=== PATIENT | male | born 1945 | race Caucasian/White ===

== ENCOUNTER 2016-12-08 14:28 | Emergency (ER) | payer OTHER ==
[~2016-12-08] VITALS: Ht 177.8 cm; Wt 88.5 kg
[~2016-12-08 14:28] MED LIST: ASPI-862 PO; BUPR150T28 PO; BUSP5TAB3 PO; CILO100T PO; DILT240C2 PO; KLO.5 PO; LISI40TA4 PO; METF-303 PO; METO-308 PO; SIMV20TA6 PO
[2016-12-08 14:33] VITALS: BP 147/67; PULSE 59; RESP 20; TEMP 98.2; O2SAT 100
--- NOTE | 2016-12-08 14:39 | NUR ---
Pt placed to ER bed 02, to christen, report given to ARIANNA Covarrubias.
--- NOTE | 2016-12-08 14:40 | NUR ---
Patient arrived to ED a/o x 4 with c/o left knee pain. Patient reports he was cleaning his carpet yesterday when he twisted his knee and felt a popping sensation. No obvious deformity noted. Patient c/o 5/10 pain. No bruising or swelling. Will continue to monitor.
--- NOTE | 2016-12-08 14:45 | NUR ---
[employer] Mueller at bedside for medical evaluation.
--- NOTE | 2016-12-08 15:00 | NUR ---
Radiology at bedside.
[2016-12-08] MEDS ORDERED: ACETAMINOPHEN 500 MG TABLET PO ONE (15:15)
--- NOTE | 2016-12-08 15:25 | NUR ---
ED MD Mueller at bedside reassessing patient.
--- NOTE | 2016-12-08 15:40 | NUR ---
Note sonny in EDM - 12/08/16 at 1718 by [email or web address] Patient given written and verbal discharge instructions and verbalizes understanding. ER discussed with patient the results and treatment provided. Patient in stable condition. ID arm band removed. Rx of Tylenol given. Patient educated on pain management and to follow up with PMD. Pain Scale 2/10 tolerable for patient. Opportunity for questions provided and answered.
--- NOTE | 2016-12-08 15:59 | NUR ---
Patient reports pain 2/10 30 minutes after administration of 1000mg Tylenol PO. No adverse reactions noted. Will continue to monitor.
[2016-12-08 16:00] VITALS: BP 135/77; PULSE 64; RESP 16; TEMP 98.2; O2SAT 100
--- NOTE | 2016-12-08 16:00 | NUR ---
Patient given written and verbal discharge instructions and verbalizes understanding. ER MD discussed with patient the results and treatment provided. Patient in stable condition. ID arm band removed. Rx of Tylenol given. Patient educated on pain management and to follow up with PMD. Pain Scale 2/10 tolerable for patient. Opportunity for questions provided and answered.
--- NOTE | 2016-12-08 16:29 | NUR ---
Note sonny in ED - 12/08/16 at 1716 by [email or web address] Patient reports pain 2/10 30 minutes after administration of 1000mg Tylenol PO. No adverse reactions noted. Will continue to monitor.
== END 2016-12-08 16:00 | disposition home or self-care (01) ==
LOC: SED 14:28
DX: M25.562 Pain in left knee (principal); I10 Essential (primary) hypertension; Z86.73 Personal history of transient ischemic attack (TIA), and cerebral infarction without residual deficits; Z79.82 Long term (current) use of aspirin; X50.1XXA Overexertion from prolonged static or awkward postures, initial encounter; Y93.E9 Activity, other interior property and clothing maintenance; Y92.89 Other specified places as the place of occurrence of the external cause; Y99.8 Other external cause status
CPT/HCPCS: 73564; 99284

== ENCOUNTER 2018-06-05 11:39 | Emergency (ER) | payer OTHER ==
[~2018-06-05] VITALS: Ht 177.8 cm; Wt 82.6 kg
[~2018-06-05 11:39] MED LIST changes: -METF-303 PO; +METF-379 PO; -METO-308 PO; +METO-544 PO
[2018-06-05 11:40] VITALS: BP_SYST 135
[2018-06-05 12:50] LABS: CALCIUM 9.1 mg/dL (8.4-11.0); CHLORIDE 98 mmol/L (98-107); CREATININE 1.43 mg/dL (0.55-1.30); GLUCOSE 294 mg/dL (70-99); POTASSIUM 4.6 mmol/L (3.5-5.1); SODIUM SERUM 131 mmol/L (136-145); UREA NITROGEN, BLOOD 29 mg/dL (8-21)
[2018-06-05 12:53] LABS: INR 1.1 (0.80-1.20); PROTHROMBIN TIME 11.5 SECS (9.5-12.5)
[2018-06-05 12:54] LABS: HEMATOCRIT 36.6 % (36-54); HEMOGLOBIN 12.2 g/dL (14.0-18.0); LYMPHOCYTES % (AUTO) 23.3 % (20.5-51.5); MEAN CORPUSCULAR HEMOGLOBIN 30 pg (27-31); MEAN CORPUSCULAR HGB CONC 33 % (32-36); MEAN CORPUSCULAR VOLUME 89 fL (79.0-98.0); MONOCYTES % (AUTO) 9.1 % (1.7-9.3); NEUTROPHILS % (AUTO) 65.5 % (40.0-70.0); PLATELET COUNT (AUTO) 218 K/uL (130-430); RED BLOOD CELL COUNT(AUTO) 4.13 MIL/uL (4.2-6.2); RED CELL DISTRIBUTION WIDTH 14.5 % (9.0-15.0); WHITE BLOOD COUNT (AUTO) 6.2 K/uL (4.8-10.8)
[2018-06-05 12:55] LABS: ALANINE AMINOTRANSFERASE 30 U/L (12-78); ALBUMIN 3.5 g/dL (3.4-4.8); ANION GAP 4 (5-15); ASPARTATE AMINOTRANSFERASE 19 U/L (10-37); BASOPHILS % (AUTO) 0.5 % (0.0-2.0); EOSINOPHILS # (AUTO) 0.1 K/uL (0.0-0.4); EOSINOPHILS % (AUTO) 1.6 % (0.0-4.0); LYMPHOCYTES # (AUTO) 1.4 K/uL (1.0-5.5); MONOCYTES # (AUTO) 0.6 K/uL (0.0-1.0); TOTAL BILIRUBIN 0.5 mg/dL (0.0-1.0)
[2018-06-05 16:15] VITALS: BP_SYST 135
[2018-06-05 17:46] LABS: BILIRUBIN,URINE NEGATIVE (NEGATIVE); BLOOD, URINE NEGATIVE (NEGATIVE); CLARITY/URINE CLEAR (CLEAR); COLOR,URINE YELLOW (YELLOW); GLUCOSE,URINE 1+ (NEGATIVE); KETONES,URINE NEGATIVE (NEGATIVE); LEUKOCYTE ESTERASE ,URINE NEGATIVE (NEGATIVE); NITRITE, URINE NEGATIVE (NEGATIVE); PH,URINE 5.5 (5.0-8.0); PROTEIN URINE NEGATIVE (NEGATIVE); UROBILINOGEN,URINE 0.2 (0.2-1.0)
[2018-06-05 17:58] LABS: BARBITURATE, URINE NEGATIVE (NEG <=200); BENZODIAZEPINE, URINE NEGATIVE (NEG <=150); CANNABINOID, URINE NEGATIVE (NEG <=50); COCAINE, URINE NEGATIVE (NEG <=150); METHAMPHETAMINES SCREEN,URINE NEGATIVE (NEG <=500); OPIATE, URINE NEGATIVE (NEG <=100); PHENCYCLIDINE SCREEN,URINE NEGATIVE (NEG <=25); UR TRICYCLIC ANTIDEPRESSANTS NEGATIVE (NEG <=300); URINE AMPHETAMINE NEGATIVE (NEG <=500); URINE METHADONE NEGATIVE (NEG <=200); URINE OXYCODONE SCREEN NEGATIVE (NEG <=100); URINE PROPOXYPHENE SCREEN NEGATIVE (NEG <=300)
== END 2018-06-05 16:15 | disposition home or self-care (01) ==
LOC: SED 11:39
DX: E86.0 Dehydration (principal); R42 Dizziness and giddiness; E11.9 Type 2 diabetes mellitus without complications; I10 Essential (primary) hypertension; Z86.79 Personal history of other diseases of the circulatory system; Z86.73 Personal history of transient ischemic attack (TIA), and cerebral infarction without residual deficits; Z79.82 Long term (current) use of aspirin; Z79.899 Other long term (current) drug therapy
CPT/HCPCS: 36415; 70450-TC; 71045; 80053; 80307; 81003; 82962; 84484; 85025; 85610-TC; 85730-TC; 93005; 99284

== ENCOUNTER 2020-06-30 16:21 | Emergency (ER) | payer OTHER ==
[~2020-06-30] VITALS: Ht 177.8 cm; Wt 79.4 kg
[~2020-06-30 16:21] MED LIST changes: -DILT240C2 PO; +DILT240C95 PO; +LISI40TA13 PO; -LISI40TA4 PO; +SIMV-43 PO; -SIMV20TA6 PO
[2020-06-30 16:43] VITALS: BP_SYST 187
[2020-06-30] MEDS ORDERED: SULF1TAB48 PO (17:22)
[2020-06-30 17:30] VITALS: BP_SYST 165
== END 2020-06-30 17:31 | disposition home or self-care (01) ==
LOC: SED 16:21
DX: L03.115 Cellulitis of right lower limb (principal); L98.499 Non-pressure chronic ulcer of skin of other sites with unspecified severity; I10 Essential (primary) hypertension; E11.9 Type 2 diabetes mellitus without complications; Z79.899 Other long term (current) drug therapy; Z79.82 Long term (current) use of aspirin; Z86.73 Personal history of transient ischemic attack (TIA), and cerebral infarction without residual deficits; Z86.79 Personal history of other diseases of the circulatory system
CPT/HCPCS: 99283

== ENCOUNTER 2021-03-11 16:17 | Emergency (ER) | payer OTHER, SELFPAY ==
[~2021-03-11] VITALS: Ht 177.8 cm; Wt 77.1 kg
[~2021-03-11 16:17] MED LIST changes: +SULF1TAB48 PO
[2021-03-11 16:20] VITALS: BP_SYST 150
[2021-03-11 19:06] LABS: BASOPHILS % (AUTO) 0.3 % (0.0-2.0); HEMATOCRIT 39.2 % (36-54); HEMOGLOBIN 13.5 g/dL (14.0-18.0); LYMPHOCYTES # (AUTO) 0.8 K/uL (1.0-5.5); MEAN CORPUSCULAR HEMOGLOBIN 30 pg (27-31); MEAN CORPUSCULAR HGB CONC 35 % (32-36); MEAN CORPUSCULAR VOLUME 88 fL (79.0-98.0); MONOCYTES # (AUTO) 0.8 K/uL (0.0-1.0); MONOCYTES % (AUTO) 6.8 % (1.7-9.3); NEUTROPHILS % (AUTO) 85.9 % (40.0-70.0); PLATELET COUNT (AUTO) 209 K/uL (130-430); RED BLOOD CELL COUNT(AUTO) 4.45 MIL/uL (4.2-6.2); WHITE BLOOD COUNT (AUTO) 11.6 K/uL (4.8-10.8)
[2021-03-11 19:08] LABS: ANION GAP 8 (5-15); CALCIUM 8.8 mg/dL (8.4-11.0); CHLORIDE 99 mmol/L (98-107); CREATININE 1.12 mg/dL (0.55-1.30); GLUCOSE 258 mg/dL (70-99); SODIUM SERUM 137 mmol/L (136-145); UREA NITROGEN, BLOOD 19 mg/dL (8-21)
[2021-03-11 19:17] LABS: ALANINE AMINOTRANSFERASE 21 U/L (12-78); ALBUMIN 3.6 g/dL (3.4-4.8); ASPARTATE AMINOTRANSFERASE 10 U/L (10-37); LACTATE DEHYDROGENASE 204 U/L (85-227); TOTAL BILIRUBIN 0.7 mg/dL (0.0-1.0)
[2021-03-11 19:18] LABS: C-REACTIVE PROTEIN QUANT 9.4 mg/dL (0-0.5)
[2021-03-11 19:22] LABS: FIBRINOGEN 552 mg/dL (200-400)
[2021-03-11] MEDS ORDERED: IOHEXOL 350 mgI/mL, 150 ML INFUS..BTL IV ONE (21:54)
[2021-03-11] MEDS ORDERED: cefTRIAXone 1 GM in D5W 50 ML IV ONE (23:45)
[2021-03-11] MEDS ORDERED: AZITHROMYCIN 250 MG TABLET PO ONE (23:45)
[2021-03-11] MEDS ORDERED: ACETAMINOPHEN 500 MG TABLET ONE (23:50)
[2021-03-11] MEDS ORDERED: cefTRIAXone 1 GM VIAL ONE (23:54)
[2021-03-12] MEDS ORDERED: NACL 0.9% 1,000 ML IV ONE
[2021-03-12] MEDS ORDERED: ACETAMINOPHEN 500 MG TABLET PO ONE
[2021-03-12] MEDS ORDERED: ALBMDI INH (02:12)
[2021-03-12] MEDS ORDERED: GUAI5SYR PO (02:12)
[2021-03-12] MEDS ORDERED: FLO44 INH (02:12)
[2021-03-12] MEDS ORDERED: DOXY100C5 PO (02:12)
[2021-03-12] MEDS ORDERED: AMOX-426 PO (02:12)
[2021-03-12 07:17] VITALS: BP_SYST 162
== END 2021-03-12 07:17 | disposition home or self-care (01) ==
LOC: SED 16:17
DX: U07.1 COVID-19 (principal); J12.82 Pneumonia due to coronavirus disease 2019; I10 Essential (primary) hypertension; E11.9 Type 2 diabetes mellitus without complications; Z79.899 Other long term (current) drug therapy
CPT/HCPCS: 71045; 71275; 76376; 80053; 82550; 82962; 83605; 83615; 83880; 84484; 85025; 85379; 85384; 86140; 87040; 87426; 93005; 96365; 99285; J0696; Q0144; Q9967

== ENCOUNTER 2022-02-10 12:46 | Inpatient (IN) | payer OTHER ==
[~2022-02-10] VITALS: Ht 175.3 cm; Wt 76.3 kg
[~2022-02-10 12:46] MED LIST changes: +ALBMDI INH; +AMOX-426 PO; -CILO100T PO; +CILO100T3 PO; +DOXY100C5 PO; +FLO44 INH; +GUAI5SYR PO
[2022-02-10 12:59] VITALS: BP_SYST 184
--- NOTE | 2022-02-10 13:07 | NUR ---
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 AAOX4. Addendum: 02/10/22 at 1640 by [email or web address] Admit bed requested Patient will be admitted to care of . Admitted to TELE unit. Diagnosis C/P R/O CVA Inpatient (Yes or No) Y Observation (Yes or No) N Orientation concerns or request close to nursing station (Yes or No) Covid StatusPENDING On vent or bipap N Isolation requirements N Needs a sitter N From Home (Yes or if No enter name of facility) Y Requires Dialysis (Yes or No) N Med Rec Completed (Yes of No) N
--- NOTE | 2022-02-10 13:09 | NUR ---
Patient to ER bed 3 to gown for evaluation. Side rails up. Report given to LATOSHA KELLER.
--- NOTE | 2022-02-10 13:30 | NUR ---
EDP AT BEDSIDE FOR INITIAL ASSESSMENT.
[2022-02-10 14:07] LABS: BASOPHILS % (AUTO) 0.5 % (0.0-2.0); EOSINOPHILS # (AUTO) 0.1 K/uL (0.0-0.4); HEMATOCRIT 39.4 % (36-54); HEMOGLOBIN 13.4 g/dL (14.0-18.0); LYMPHOCYTES # (AUTO) 0.7 K/uL (1.0-5.5); LYMPHOCYTES % (AUTO) 13.2 % (20.5-51.5); MEAN CORPUSCULAR HEMOGLOBIN 31 pg (27-31); MEAN CORPUSCULAR HGB CONC 34 % (32-36); MEAN CORPUSCULAR VOLUME 91 fL (79.0-98.0); MONOCYTES # (AUTO) 0.7 K/uL (0.0-1.0); MONOCYTES % (AUTO) 12.7 % (1.7-9.3); NEUTROPHILS # (AUTO) 3.9 K/uL (1.8-7.7); NEUTROPHILS % (AUTO) 71.6 % (40.0-70.0); PLATELET COUNT (AUTO) 242 K/uL (130-430); RED BLOOD CELL COUNT(AUTO) 4.35 MIL/uL (4.2-6.2); RED CELL DISTRIBUTION WIDTH 13.7 % (9.0-15.0); WHITE BLOOD COUNT (AUTO) 5.4 K/uL (4.8-10.8)
[2022-02-10 14:22] LABS: ANION GAP 7 (5-15); CALCIUM 9.1 mg/dL (8.4-11.0); CHLORIDE 100 mmol/L (98-107); CREATININE 1.13 mg/dL (0.55-1.30); GLUCOSE 360 mg/dL (70-99); UREA NITROGEN, BLOOD 23 mg/dL (8-21)
[2022-02-10 14:29] LABS: ALANINE AMINOTRANSFERASE 24 U/L (12-78); ALBUMIN 3.4 g/dL (3.4-4.8); ASPARTATE AMINOTRANSFERASE 20 U/L (10-37); TOTAL BILIRUBIN 0.4 mg/dL (0.0-1.0)
--- NOTE | 2022-02-10 16:42 | NUR ---
PATIENT ADMIT TO DR LOPEZ, AWAITING FOR BED ASSIGNMENT.
--- NOTE | 2022-02-10 18:13 | NUR ---
CALL PLACE TO DR WARNER.
--- NOTE | 2022-02-10 18:42 | NUR ---
COVID SWAB SENT TO LAB.
--- NOTE | 2022-02-10 20:00 | NUR ---
A/O X 3, VSS NO S/S OF ACUTE DISTRESS
--- NOTE | 2022-02-11 03:30 | NUR ---
PROVIDED COMPLETE BEDSIDE CARE AND LINEN CHANGE
[2022-02-11] MEDS ORDERED: ALBUTEROL SULFATE 0.083% 2.5 MG/3 ML VIAL.NEB INH PRN (07:15)
[2022-02-11 07:47] LABS: BASOPHILS % (AUTO) 0.8 % (0.0-2.0); EOSINOPHILS # (AUTO) 0.2 K/uL (0.0-0.4); EOSINOPHILS % (AUTO) 3.2 % (0.0-4.0); HEMATOCRIT 38.7 % (36-54); HEMOGLOBIN 13.4 g/dL (14.0-18.0); LYMPHOCYTES # (AUTO) 1.6 K/uL (1.0-5.5); LYMPHOCYTES % (AUTO) 26.6 % (20.5-51.5); MEAN CORPUSCULAR HEMOGLOBIN 31 pg (27-31); MEAN CORPUSCULAR HGB CONC 35 % (32-36); MEAN CORPUSCULAR VOLUME 90 fL (79.0-98.0); MONOCYTES # (AUTO) 0.7 K/uL (0.0-1.0); MONOCYTES % (AUTO) 11.5 % (1.7-9.3); NEUTROPHILS # (AUTO) 3.5 K/uL (1.8-7.7); NEUTROPHILS % (AUTO) 57.9 % (40.0-70.0); PLATELET COUNT (AUTO) 260 K/uL (130-430); RED BLOOD CELL COUNT(AUTO) 4.32 MIL/uL (4.2-6.2); RED CELL DISTRIBUTION WIDTH 13.8 % (9.0-15.0); WHITE BLOOD COUNT (AUTO) 6.1 K/uL (4.8-10.8)
[2022-02-11 07:59] LABS: ANION GAP 8 (5-15); CALCIUM 8.6 mg/dL (8.4-11.0); CHLORIDE 101 mmol/L (98-107); CREATININE 1.04 mg/dL (0.55-1.30); GLUCOSE 270 mg/dL (70-99); UREA NITROGEN, BLOOD 22 mg/dL (8-21)
[2022-02-11 08:00] LABS: PROTHROMBIN TIME 10.6 SECS (9.5-12.5)
--- NOTE | 2022-02-11 08:00 | NUR ---
RECEIVED REPORT FROM ARIANNA ARIAS FOR CONTINUITY OF CARE. PATIENT TO BE ADMITTED FOR CHEST PAIN R/O CVA. PATIENT WITH HX OF AFIB, NOT RECEIVING ANY ANTICOAGULATION. PATIENT HAS BEEN EXPERIENCING INTERMITTED CP. AT THE ED HE WAS NOTED TO HAVE OCCASSIONAL ELEVATED HR WITH EXERTION, REACHING UP TO 170S ACCOMPANIED WITH DIZZINESS. NO DIZZINESS NOTED AT THIS TIME. WILL CONTINUE WITH PLAN OF CARE
[2022-02-11 08:17] LABS: ALANINE AMINOTRANSFERASE 25 U/L (12-78); ALBUMIN 3.5 g/dL (3.4-4.8); ASPARTATE AMINOTRANSFERASE 21 U/L (10-37); CHOLESTEROL 227 mg/dL (<200); HDL CHOLESTEROL 52 mg/dL (>45); TOTAL BILIRUBIN 0.4 mg/dL (0.0-1.0); TRIGLYCERIDES 86 mg/dL (30-150)
--- NOTE | 2022-02-11 08:28 | NUR ---
DR. RIBERA AT BEDSIDE WITH PATIENT.
[2022-02-11] MEDS ORDERED: SIMVASTATIN 20 MG TABLET PO SCH (09:00)
[2022-02-11] MEDS: buPROPion HCL 150 MG TABLET.SA PO SCH (09:00)
[2022-02-11] MEDS: ASPIRIN 81 MG TAB.CHEW PO SCH (09:00)
[2022-02-11] MEDS ORDERED: metFORMIN HCL 500 MG TABLET PO SCH (09:00)
[2022-02-11] MEDS ORDERED: NON-FORMULARY MEDICATION (Metoprolol Succinate 100 MG) PO SCH (09:00)
[2022-02-11] MEDS: CARVEDILOL 25 MG TABLET (COREG) PO SCH ×2 (09:00→21:00)
[2022-02-11] MEDS ORDERED: FLUTICASONE 44 mcg/ACTUATION MDI AER.W.ADAP INH SCH (09:00)
[2022-02-11] MEDS: lisinopriL 20 MG TABLET PO SCH ×2 (09:00→20:59)
[2022-02-11] MEDS ORDERED: ASPIRIN 81 MG TAB.CHEW PO SCH (09:00)
--- NOTE | 2022-02-11 09:53 | NUR ---
CARDIAC ULTRASOUND COMPLETED AND PATIENT TRANSFERRED TO MRI. MRI QUESTIONNAIRE COMPLETED WITH PATIENT
--- NOTE | 2022-02-11 10:30 | NUR ---
PATIENT RETURNED FROM MRI. TOLERATED PROCEDURE WELL. NO S/S OF ACUTE DISTRESS. ATTACHED TO MONITOR. WILL CONTINUE WITH PLAN OF CARE
--- NOTE | 2022-02-11 12:26 | NUR ---
Patient resting quietly. No acute distress noted. Vital signs within normal range.
[2022-02-11 13:53] VITALS: BP_SYST 163
--- NOTE | 2022-02-11 14:00 | NUR ---
PATIENT SITTING UP IN BED, ABLE TO AMBULATE TO THE BATHROOM INDEPENDENTLY. PLAN OF CARE ONGOING
--- NOTE | 2022-02-11 16:11 | NUR ---
PATIENT RETURNED FROM RESTROOM, RELIGIOUS EDUCATOR AT BEDSIDE FOR CAROTID ULTRASOUND
--- NOTE | 2022-02-11 18:15 | NUR ---
Patient resting quietly. No acute distress noted. Vital signs within normal range.
[2022-02-11] MEDS: metFORMIN HCL 500 MG TABLET PO SCH (18:26)
--- NOTE | 2022-02-11 18:57 | NUR ---
Admit bed requested Patient will be admitted to care of . Admitted to TELE unit. Diagnosis CP R/O CVA Inpatient (Yes or No) YES Observation (Yes or No) NO Orientation concerns or request close to nursing station (Yes or No) NO Covid Status NEGATIVE On vent or bipap NO Isolation requirements NO Needs a sitter NO From Home (Yes or if No enter name of facility) HOME Requires Dialysis (Yes or No) NO Med Rec Completed (Yes of No) YES
--- NOTE | 2022-02-11 19:24 | NUR ---
REPORT FROM RICARDO KELLER
--- NOTE | 2022-02-11 20:00 | NUR ---
Patient will be admitted to care of JEROME KELLER. Admitted to TELE unit. Will go to room 100A. Belongings list completed. Complete and up to date summary report printed. SBAR report to be given at bedside with opportunity for questions.
[2022-02-11] MEDS: SIMVASTATIN 40 MG TABLET PO SCH (20:59)
[2022-02-11 21:09] VITALS: BP_SYST 158
--- NOTE | 2022-02-11 21:15 | NUR ---
ADMIT 76 year old male alert & oriented ambulates to Rest Room History of old CVA no deficits noted procedures explained & due medications po administered / .
--- NOTE | 2022-02-12 | NUR ---
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
[2022-02-12 02:00] VITALS: BP_SYST 154
--- NOTE | 2022-02-12 03:58 | NUR ---
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
[2022-02-12 07:26] LABS: BASOPHILS # (AUTO) 0.1 K/uL (0.0-0.2); BASOPHILS % (AUTO) 0.8 % (0.0-2.0); EOSINOPHILS # (AUTO) 0.2 K/uL (0.0-0.4); EOSINOPHILS % (AUTO) 2.3 % (0.0-4.0); HEMATOCRIT 35.9 % (36-54); HEMOGLOBIN 12.4 g/dL (14.0-18.0); LYMPHOCYTES # (AUTO) 1.6 K/uL (1.0-5.5); MEAN CORPUSCULAR HEMOGLOBIN 31 pg (27-31); MEAN CORPUSCULAR HGB CONC 35 % (32-36); MEAN CORPUSCULAR VOLUME 89 fL (79.0-98.0); NEUTROPHILS # (AUTO) 4.3 K/uL (1.8-7.7); NEUTROPHILS % (AUTO) 60.9 % (40.0-70.0); PLATELET COUNT (AUTO) 237 K/uL (130-430); RED BLOOD CELL COUNT(AUTO) 4.02 MIL/uL (4.2-6.2); RED CELL DISTRIBUTION WIDTH 13.8 % (9.0-15.0); WHITE BLOOD COUNT (AUTO) 7.1 K/uL (4.8-10.8)
[2022-02-12 07:34] LABS: ANION GAP 5 (5-15); CALCIUM 8.7 mg/dL (8.4-11.0); CHLORIDE 104 mmol/L (98-107); CREATININE 1.09 mg/dL (0.55-1.30); GLUCOSE 302 mg/dL (70-99); UREA NITROGEN, BLOOD 26 mg/dL (8-21)
[2022-02-12 07:49] LABS: ALANINE AMINOTRANSFERASE 24 U/L (12-78); ASPARTATE AMINOTRANSFERASE 16 U/L (10-37); THYROID STIMULATING HORMONE 1.51 uIu/mL (0.36-3.74); TOTAL BILIRUBIN 0.4 mg/dL (0.0-1.0)
[2022-02-12 08:39] VITALS: BP_SYST 196
[2022-02-12] MEDS: ASPIRIN 81 MG TAB.CHEW PO SCH (08:57)
[2022-02-12] MEDS: buPROPion HCL 150 MG TABLET.SA PO SCH (08:58)
[2022-02-12] MEDS: metFORMIN HCL 500 MG TABLET PO SCH ×2 (08:58→18:48)
[2022-02-12] MEDS: lisinopriL 20 MG TABLET PO SCH ×2 (08:59→20:55)
[2022-02-12] MEDS: CARVEDILOL 25 MG TABLET (COREG) PO SCH ×2 (08:59→20:55)
[2022-02-12] MEDS ORDERED: DILTIAZEM HCL 180 MG CAP.SR.24H PO ONE (10:00)
--- NOTE | 2022-02-12 11:15 | NUR ---
ROUNDS LATE ENTRY DUE TO PATIENT CARE 0800:- AAAOX4. BP 196/77.DR WARNER HERE ROUNDING AND WAS NOTIFIED 1000- BLOOD MEASURE MEDICATIONS GIVEN, ADDITIONAL DOSE OF CARDIZEM GIVEN. EDUCATED ON RISK FACTORS OF STROKE AND SIGNS AND SYMPTOMS, PT VERBALIZED UNDERSTANDING
[2022-02-12 12:18] VITALS: BP_SYST 170
--- NOTE | 2022-02-12 15:53 | NUR ---
DR EBONIE MOORE MD AND INFORMED HIM OF NEW CONSULTS. HE WILL COME AFTER 5 PM
[2022-02-12 15:55] VITALS: BP_SYST 152
[2022-02-12] MEDS ORDERED: SUCR1TAB2 PO ×2 (16:44)
[2022-02-12] MEDS ORDERED: metFORMIN HCL 500 MG TABLET PO SCH (18:00)
--- NOTE | 2022-02-12 19:21 | NUR ---
closing all needs attended,report given to patrick trinidad
[2022-02-12 20:00] VITALS: BP_SYST 153
--- NOTE | 2022-02-12 20:00 | NUR ---
pt is alert and oriented x4. follow commands. cooperative. ambulatory. vital sign is wnl.
--- NOTE | 2022-02-12 20:30 | NUR ---
Dr huston at the bedside.
[2022-02-12] MEDS: SIMVASTATIN 40 MG TABLET PO SCH (20:50)
[2022-02-13] VITALS: BP_SYST 129
--- NOTE | 2022-02-13 08:00 | NUR ---
AM NOTES FOR EEG TODAY, THE DC HOME AFTER EEG, SEEN BY DR WARNER. 1200 EEG WAS DONE, DOESN'T WAN TO BRING HOME PATIENT TILL SHE SPEAK TO DR LOPEZ AND DR LOOMIS. [address] LOOMIS SPOKE TO PATIENT, PATIENT TO STAY ONE MORE DAY AND TO START KEPPRA 1800 NO SOB, NO SEIZURE NOTED.
[2022-02-13 08:20] VITALS: BP_SYST 137
[2022-02-13] MEDS: metFORMIN HCL 500 MG TABLET PO SCH ×2 (08:45→17:25)
[2022-02-13] MEDS: ASPIRIN 81 MG TAB.CHEW PO SCH (08:45)
[2022-02-13] MEDS: DILTIAZEM HCL 180 MG CAP.SR.24H PO SCH (08:47)
[2022-02-13] MEDS: lisinopriL 20 MG TABLET PO SCH ×2 (08:48→20:42)
[2022-02-13] MEDS: CARVEDILOL 25 MG TABLET (COREG) PO SCH ×2 (08:48→20:43)
[2022-02-13] MEDS: buPROPion HCL 150 MG TABLET.SA PO SCH (08:48)
[2022-02-13 11:21] VITALS: BP_SYST 147
[2022-02-13] MEDS ORDERED: ASPI-1155 PO (11:35)
[2022-02-13] MEDS ORDERED: GLIP10TA11 PO (11:36)
[2022-02-13] MEDS ORDERED: NOR10 PO (11:37)
[2022-02-13] MEDS ORDERED: COR25 PO (11:37)
[2022-02-13] MEDS ORDERED: SIMV-341 PO (11:38)
[2022-02-13] MEDS ORDERED: DONE-49 PO (11:39)
[2022-02-13 11:40] VITALS: BP_SYST 140
[2022-02-13 15:23] VITALS: BP_SYST 153
[2022-02-13] MEDS ORDERED: BUDESONIDE 0.5 MG/2 ML AMPUL.NEB INH SCH (19:00)
[2022-02-13 20:00] VITALS: BP_SYST 180
--- NOTE | 2022-02-13 20:00 | NUR ---
got the report from the days shift nurse, pt is awake and oriented, answers questions. Pt is under observation since starting the [facility].
[2022-02-13] MEDS: levETIRAcetam 500 MG TABLET PO SCH (20:42)
[2022-02-13] MEDS: SIMVASTATIN 40 MG TABLET PO SCH (20:43)
[2022-02-14] VITALS: BP_SYST 157
[2022-02-14 07:50] VITALS: BP_SYST 161
--- NOTE | 2022-02-14 08:00 | NUR ---
AM NOTES TOOK BREAKFAST, AMBULATORY, NO SEIZURE NOTED, BP 160/ 65, DUE AM MEDS FOR HYPERTENSION GIVEN TO PATIENT. AWAITING FOR MD TO COME TO SEE PATIENT POSSIBLE DISCHARGE,
[2022-02-14] MEDS: buPROPion HCL 150 MG TABLET.SA PO SCH (08:29)
[2022-02-14] MEDS: ASPIRIN 81 MG TAB.CHEW PO SCH (08:29)
[2022-02-14] MEDS: metFORMIN HCL 500 MG TABLET PO SCH (08:30)
[2022-02-14] MEDS: DILTIAZEM HCL 180 MG CAP.SR.24H PO SCH (08:31)
[2022-02-14] MEDS: lisinopriL 20 MG TABLET PO SCH (08:32)
[2022-02-14] MEDS: levETIRAcetam 500 MG TABLET PO SCH (08:33)
[2022-02-14] MEDS: CARVEDILOL 25 MG TABLET (COREG) PO SCH (08:34)
[2022-02-14 11:06] VITALS: BP_SYST 125
[2022-02-14 11:21] VITALS: BP_SYST 146
[2022-02-14 15:21] VITALS: BP_SYST 142
[2022-02-14] MEDS ORDERED: DILT240C91 PO (15:48)
[2022-02-14] MEDS ORDERED: LEVE500T9 PO (16:10)
[2022-02-14] MEDS ORDERED: hydrALAZINE HCL 20 MG/ML VIAL IVP ONE (16:30)
--- NOTE | 2022-02-14 18:30 | NUR ---
D/C Patient Patient given medication reconciliation form and D/C instructions. Exit Care provided. Patient verbalized understanding. MD Grullon discussed with patient the results and treatment provided. Ambulatory with steady gait for discharge to home. Patient in stable condition, ID band removed. IV catheter removed, intact and dressing applied, no active bleeding. Patient educated on pain management. All belongings sent with patient.
== END 2022-02-14 18:30 | disposition home or self-care (01) | DRG 101 ==
LOC: SED 12:46 → STU 16:27 → SMU 02-12 12:46 → STU 02-12 15:59
PROVIDERS: ADMIT Internal Medicine; ATTEND Internal Medicine
PROC: 4A00X4Z Measurement of Central Nervous Electrical Activity, External Approach (ICD-10-PCS; principal; 2022-02-13)
DX: R56.9 Unspecified convulsions (principal); J06.9 Acute upper respiratory infection, unspecified; F03.A0 Unspecified dementia, mild, without behavioral disturbance, psychotic disturbance, mood disturbance, and anxiety; I48.0 Paroxysmal atrial fibrillation; E78.5 Hyperlipidemia, unspecified; I25.10 Atherosclerotic heart disease of native coronary artery without angina pectoris; E78.00 Pure hypercholesterolemia, unspecified; Z20.822 Contact with and (suspected) exposure to COVID-19; I10 Essential (primary) hypertension; E11.65 Type 2 diabetes mellitus with hyperglycemia; Z79.899 Other long term (current) drug therapy; Z86.73 Personal history of transient ischemic attack (TIA), and cerebral infarction without residual deficits; Z87.891 Personal history of nicotine dependence; Z79.82 Long term (current) use of aspirin
CPT/HCPCS: 36415; 70450-TC; 70551; 71045; 76376; 80053; 80061; 83735; 83880; 84443; 84484; 85025; 85610-TC; 93005; 93306; 93880; 94640; 94760; 95816; 99285; G0378; J0360; J7613

== ENCOUNTER 2023-02-02 10:08 | Emergency (ER) | payer OTHER ==
[~2023-02-02] VITALS: Ht 175.3 cm; Wt 86.2 kg
[~2023-02-02 10:08] MED LIST changes: -ALBMDI INH; -AMOX-426 PO; +ASPI-1155 PO; -ASPI-862 PO; -BUPR150T28 PO; -BUSP5TAB3 PO; -CILO100T3 PO; +COR25 PO; +DILT240C91 PO; -DILT240C95 PO; +DONE-49 PO; -DOXY100C5 PO; -FLO44 INH; +GLIP10TA11 PO; -GUAI5SYR PO; +LEVE500T9 PO; -METO-544 PO; +NOR10 PO; +SIMV-341 PO; -SULF1TAB48 PO
[2023-02-02 10:10] VITALS: BP_SYST 151; PULSE 61; RESP 18; TEMP 97.8; O2SAT 98
[2023-02-02] MEDS ORDERED: levETIRAcetam 500 MG IV PREMIX 100 ML IV ONE (10:15)
[2023-02-02 10:36] LABS: BASOPHILS # (AUTO) 0.1 K/uL (0.0-0.2); BASOPHILS % (AUTO) 1.3 % (0.0-2.0); EOSINOPHILS # (AUTO) 0.1 K/uL (0.0-0.4); EOSINOPHILS % (AUTO) 0.7 % (0.0-4.0); HEMATOCRIT 40.8 % (36-54); LYMPHOCYTES % (AUTO) 9.2 % (20.5-51.5); MEAN CORPUSCULAR HEMOGLOBIN 28 pg (27-31); MEAN CORPUSCULAR HGB CONC 32 % (32-36); MEAN CORPUSCULAR VOLUME 89 fL (79.0-98.0); MONOCYTES # (AUTO) 0.7 K/uL (0.0-1.0); MONOCYTES % (AUTO) 6.2 % (1.7-9.3); NEUTROPHILS # (AUTO) 8.7 K/uL (1.8-7.7); NEUTROPHILS % (AUTO) 82.6 % (40.0-70.0); PLATELET COUNT (AUTO) 275 K/uL (130-430); RED CELL DISTRIBUTION WIDTH 14.4 % (9.0-15.0); WHITE BLOOD COUNT (AUTO) 10.5 K/uL (4.8-10.8)
[2023-02-02 11:04] LABS: ALANINE AMINOTRANSFERASE 30 U/L (12-78); ALBUMIN 3.8 g/dL (3.4-4.8); ANION GAP 6 (5-15); ASPARTATE AMINOTRANSFERASE 20 U/L (10-37); CALCIUM 8.8 mg/dL (8.4-11.0); CARBON DIOXIDE 29 mmol/L (23-29); CHLORIDE 98 mmol/L (98-107); CREATININE 1.14 mg/dL (0.55-1.30); GLUCOSE 310 mg/dL (74-106); POTASSIUM 4.5 mmol/L (3.5-5.1); SODIUM SERUM 133 mmol/L (136-145); TOTAL BILIRUBIN 0.3 mg/dL (0.0-1.0); TOTAL PROTEIN, SERUM 6.8 g/dL (6.4-8.3); UREA NITROGEN, BLOOD 25 mg/dL (8-21)
[2023-02-02 12:40] VITALS: BP_SYST 138; PULSE 72; RESP 18; TEMP 98; O2SAT 99
== END 2023-02-02 12:38 | disposition home or self-care (01) ==
LOC: SED 10:08
DX: S00.83XA Contusion of other part of head, initial encounter (principal); Z79.899 Other long term (current) drug therapy; R56.9 Unspecified convulsions; I10 Essential (primary) hypertension; E11.9 Type 2 diabetes mellitus without complications; Z79.84 Long term (current) use of oral hypoglycemic drugs; Z79.82 Long term (current) use of aspirin; X58.XXXA Exposure to other specified factors, initial encounter; Y93.89 Activity, other specified; Y92.89 Other specified places as the place of occurrence of the external cause; Y99.8 Other external cause status
CPT/HCPCS: 99285; 96365; 70450; 80053; 85025; 36415; 76376; 83605; J1953

== ENCOUNTER 2023-02-02 17:55 | Emergency (ER) | payer OTHER ==
[~2023-02-02] VITALS: Ht 175.3 cm; Wt 79.4 kg
[2023-02-02 18:03] VITALS: BP_SYST 131; PULSE 76; RESP 19; TEMP 98; O2SAT 98
[2023-02-02 19:33] LABS: ALANINE AMINOTRANSFERASE 27 U/L (12-78); ALBUMIN 3.6 g/dL (3.4-4.8); ANION GAP 4 (5-15); ASPARTATE AMINOTRANSFERASE 19 U/L (10-37); BILIRUBIN,DIRECT 0.1 mg/dL (0.0-0.3); CALCIUM 9.1 mg/dL (8.4-11.0); CARBON DIOXIDE 31 mmol/L (23-29); CHLORIDE 102 mmol/L (98-107); GLUCOSE 166 mg/dL (74-106); POTASSIUM 4.6 mmol/L (3.5-5.1); SODIUM SERUM 137 mmol/L (136-145); TOTAL BILIRUBIN 0.1 mg/dL (0.0-1.0); TOTAL PROTEIN, SERUM 6.4 g/dL (6.4-8.3); UREA NITROGEN, BLOOD 34 mg/dL (8-21)
[2023-02-02 20:02] VITALS: BP_SYST 152; PULSE 79; RESP 16; TEMP 98.3; O2SAT 95
== END 2023-02-02 20:02 | disposition home or self-care (01) ==
LOC: SED 17:55
DX: E86.0 Dehydration (principal); N28.9 Disorder of kidney and ureter, unspecified; I10 Essential (primary) hypertension; E11.9 Type 2 diabetes mellitus without complications; Z79.899 Other long term (current) drug therapy
CPT/HCPCS: 36415; 80048; 80076; 83735; 93005; 99285